=== PATIENT | male | born 1990 | race African-American/Black ===

== ENCOUNTER 2024-03-15 15:42 | Emergency (ER) | payer OTHER ==
[~2024-03-15] VITALS: Ht 193 cm; Wt 103.0 kg
[2024-03-15 15:52] VITALS: BP_SYST 148; PULSE 75; RESP 18; TEMP 98.7; O2SAT 98
[2024-03-15] MEDS ORDERED: ceFAZolin SODIUM 2 GM VIAL IV ONE (16:15)
[2024-03-15 16:32] LABS: BASOPHILS % (AUTO) 0.4 % (0.0-2.0); EOSINOPHILS % (AUTO) 0.3 % (0.0-4.0); HEMATOCRIT 40.6 % (36-54); HEMOGLOBIN 14.2 g/dL (14.0-18.0); LYMPHOCYTES # (AUTO) 1.9 K/uL (1.0-5.5); LYMPHOCYTES % (AUTO) 39.4 % (20.5-51.5); MEAN CORPUSCULAR HEMOGLOBIN 29 pg (27-31); MEAN CORPUSCULAR HGB CONC 35 % (32-36); MEAN CORPUSCULAR VOLUME 83 fL (79.0-98.0); MONOCYTES # (AUTO) 0.4 K/uL (0.0-1.0); MONOCYTES % (AUTO) 7.5 % (1.7-9.3); NEUTROPHILS # (AUTO) 2.5 K/uL (1.8-7.7); NEUTROPHILS % (AUTO) 52.4 % (40.0-70.0); PLATELET COUNT (AUTO) 243 K/uL (130-430); RED BLOOD CELL COUNT(AUTO) 4.88 MIL/uL (4.2-6.2); RED CELL DISTRIBUTION WIDTH 12.5 % (9.0-15.0); WHITE BLOOD COUNT (AUTO) 4.7 K/uL (4.8-10.8)
[2024-03-15 16:39] LABS: CALCIUM 9.2 mg/dL (8.4-11.0); POTASSIUM 3.6 mmol/L (3.5-5.1)
[2024-03-15] MEDS: CEFAZOLIN 1 GM IVPB PREMIX 50 ML IV ONE (16:45)
[2024-03-15] MEDS ORDERED: CEPH250C PO (18:56)
[2024-03-15] MEDS ORDERED: OXYC-128 PO (18:58)
[2024-03-15 19:08] VITALS: BP_SYST 142; PULSE 73; RESP 16; TEMP 98.5; O2SAT 99
== END 2024-03-15 19:07 | disposition home or self-care (01) ==
LOC: SED 15:42
DX: L03.012 Cellulitis of left finger (principal); Z79.899 Other long term (current) drug therapy; Z79.2 Long term (current) use of antibiotics
CPT/HCPCS: 99285; 73201; 96365; 80048; 85025; 36415; J0690; Q9967